=== PATIENT | female | born 1935 | race Caucasian/White ===

== ENCOUNTER 2016-07-05 11:06 | Emergency (ER) | payer MEDICARE ==
--- NOTE | 2016-07-05 11:38 | ER Document Report ---
ED Medical Screen (RME) - General Chief Complaint: Chest Pain Stated Complaint: CHEST PAIN Mode of Arrival: Wheelchair Information source: Patient TRAVEL OUTSIDE OF THE [place] IN LAST 30 DAYS: No - HPI Onset: Other - SEVERAL WEEKS, INCREASED YESTERDAY Onset/Duration: Gradual Quality of pain: Sharp, Other - SORENESS Associated Symptoms: None. denies: Chills, Cough (productive), Cough ( nonproductive), Fever, Nausea, Shortness of breath Exacerbated by: Movement Relieved by: Remaining still - Related Data Smoking: Non-smoker Frequency of alcohol use: None Drug Abuse: None Allergies/Adverse Reactions: adhesive tape [Adhesive Tape] Allergy (Verified 07/05/16 11:28) clindamycin HCl [From Cleocin] Allergy (Verified 07/05/16 11:28) clindamycin palmitate HCl [From Cleocin] Allergy (Verified 07/05/16 11:28) clindamycin phosphate [From Cleocin] Allergy (Verified 07/05/16 11:28) codeine [Codeine] Allergy (Verified 07/05/16 11:28) cortisone [Cortisone] Allergy (Verified 07/05/16 11:28) erythromycin base [Erythromycin Base] Allergy (Verified 07/05/16 11:28) hydromorphone HCl [From Dilaudid] Allergy (Verified 07/05/16 11:28) morphine [Morphine] Allergy (Verified 07/05/16 11:28) Penicillins Allergy (Verified 07/05/16 11:28) Home Medications: Current Home Medications Omeprazole [Omeprazole] 1 tab PO DAILY 07/05/16 [History] Past Medical History - General Information source: Patient - Social History Cigarette use (# per day): No Frequency of alcohol use: None Drug Abuse: None Lives with: Family Family history: Reviewed & Not Pertinent - Past Medical History Cardiac Medical History: Reports: Hx Coronary Artery Disease, Hx Heart Attack, Hx Hypercholesterolemia, Hx Hypertension Pulmonary Medical History: Reports: Hx COPD, Hx Pneumonia Neurological Medical History: Reports: Hx Cerebrovascular Accident Endocrine Medical History: Reports: Hx Diabetes Mellitus Type 2 Renal/ Medical History: Denies: Hx Peritoneal Dialysis Malignancy Medical History: Reports: Hx Breast Cancer, Hx Cervical Cancer Musculoskeltal Medical History: Reports Hx Arthritis, Reports Hx Musculoskeletal Deformity, Reports Hx Musculoskeletal Trauma - broken cervical spine, both ankles, left wrist Traumatic Medical History: Reports: Hx Fractures, Hx Spine Fracture Past Surgical History: Reports: Hx Breast Surgery - mastectomy bilateral, Hx Cardiac Surgery - heart valve replacement, bypass, Hx Coronary Artery Bypass Graft, Hx Hysterectomy, Hx Neurologic Surgery, Hx Orthopedic Surgery - left knee cartlidge removed to put in left ankle, left ankle orif, neck samantha, Hx Valve Replacement - Porcine Aortic valve - Immunizations Immunizations up to date: Yes Hx Diphtheria, Pertussis, Tetanus Vaccination: Yes Review of Systems - Review of Systems Constitutional: No symptoms reported. denies: Chills, Fever Cardiovascular: See HPI Respiratory: See HPI Physical Exam - Vital signs Vitals: Temp Pulse Resp BP Pulse Ox 97.8 F 80 20 158/69 H 98 07/05/16 11:23 07/05/16 11:23 07/05/16 11:23 07/05/16 11:23 07/05/16 11:23 Interpretation: Normal - General General appearance: Appears well, Alert In distress: None - Respiratory Chest status: Tender - L. UPPER PECTORAL Breath sounds: Normal - Cardiovascular Rhythm: Regular Heart sounds: Normal auscultation Murmur: No Course - Vital Signs Vital signs: Temp Pulse Resp BP Pulse Ox 97.8 F 80 20 158/69 H 98 07/05/16 11:23 07/05/16 11:23 07/05/16 11:23 07/05/16 11:23 07/05/16 11:23
[2016-07-05 12:01] LABS: ABSOLUTE BASOPHILS # (AUTO) 0.1 10^3/uL (0.0-0.2); ABSOLUTE EOSINOPHILS # (AUTO) 0.2 10^3/uL (0.0-0.6); ABSOLUTE LYMPHOCYTES (AUTO) 1.5 10^3/uL (0.5-4.7); ABSOLUTE MONOCYTES (AUTO) 0.4 10^3/uL (0.1-1.4); ABSOLUTE NEUT (AUTO) 3.7 10^3/uL (1.7-8.2); BASOPHILS % (AUTO) 1.1 % (0-2); HEMATOCRIT 43.2 % (36.0-47.0); HEMOGLOBIN 14.7 g/dL (12.0-15.5); HGB HCT DIFFERENCE 0.9; LYMPHOCYTES % (AUTO) 25.5 % (13-45); MEAN CORPUSCULAR HEMOGLOBIN 31.4 pg (27.0-33.4); MEAN CORPUSCULAR HGB CONC 34.1 g/dL (32.0-36.0); MEAN CORPUSCULAR VOLUME 92 fl (80-97); MONOCYTES % (AUTO) 6.8 % (3-13); SEGMENTED NEUTROPHILS % (AUTO) 63.6 % (42-78); WHITE BLOOD COUNT 5.8 10^3/uL (4.0-10.5)
[2016-07-05 12:20] LABS: ALANINE AMINOTRANSFERASE 28 U/L (9-52); ALBUMIN 4.6 g/dL (3.5-5.0); ALKALINE PHOSPHATASE 80 U/L (38-126); ANION GAP 12 (5-19); ASPARTATE AMINO TRANSFERASE 27 U/L (14-36); BILIRUBIN,DIRECT 0.3 mg/dL (0.0-0.4); BILIRUBIN,TOTAL 0.9 mg/dL (0.2-1.3); BLOOD UREA NITROGEN 17 mg/dL (7-20); CALCIUM 10.1 mg/dL (8.4-10.2); CARBON DIOXIDE 29 mmol/L (22-30); CHLORIDE 105 mmol/L (98-107); CREATINE KINASE 55 U/L (30-135); CREATININE RESULT 0.68 mg/dL (0.52-1.25); GLUCOSE 94 mg/dL (75-110); SODIUM 145.6 mmol/L (137-145)
[2016-07-05 12:36] LABS: TROPONIN I < 0.012 ng/mL
--- NOTE | 2016-07-05 13:41 | ER Document Report ---
ED General - General Chief Complaint: Chest Pain Stated Complaint: CHEST PAIN Mode of Arrival: Wheelchair TRAVEL OUTSIDE OF THE [place] IN LAST 30 DAYS: No - HPI Patient complains to provider of: chest wall pain Notes: Patient is coming in for evaluation of chest wall pain. Patient states ongoing for approximately a week started after she was taking care of her great grandson states pain with movement denies any shortness breath nausea vomiting fevers chills. Patient does have a history of bypass surgery in the past. Patient states "I know his chest wall pain that would just like to make sure that is not pneumonia a cracked rib or my heart - Related Data Allergies/Adverse Reactions: adhesive tape [Adhesive Tape] Allergy (Verified 07/05/16 11:28) aspirin Allergy (Verified 07/05/16 12:29) betamethasone [From Celestone] Allergy (Verified 07/05/16 12:29) clindamycin HCl [From Cleocin] Allergy (Verified 07/05/16 11:28) clindamycin palmitate HCl [From Cleocin] Allergy (Verified 07/05/16 11:28) clindamycin phosphate [From Cleocin] Allergy (Verified 07/05/16 11:28) codeine [Codeine] Allergy (Verified 07/05/16 11:28) cortisone [Cortisone] Allergy (Verified 07/05/16 11:28) erythromycin base [Erythromycin Base] Allergy (Verified 07/05/16 11:28) hydromorphone HCl [From Dilaudid] Allergy (Verified 07/05/16 11:28) morphine [Morphine] Allergy (Verified 07/05/16 11:28) Penicillins Allergy (Verified 07/05/16 11:28) Sulfa (Sulfonamide Antibiotics) Allergy (Verified 07/05/16 12:29) Home Medications: Current Home Medications Omeprazole [Omeprazole] 1 tab PO DAILY 07/05/16 [History] Past Medical History - General Information source: Patient - Social History Smoking Status: Never Smoker Cigarette use (# per day): No Chew tobacco use (# tins/day): No Frequency of alcohol use: Social Drug Abuse: None Lives with: Family Family History: Reviewed & Not Pertinent, DM, Other - was adopted at and does not know more of history Patient has suicidal ideation: No Patient has homicidal ideation: No - Past Medical History Cardiac Medical History: Reports: Hx Coronary Artery Disease, Hx Heart Attack, Hx Hypercholesterolemia, Hx Hypertension Pulmonary Medical History: Reports: Hx Asthma, Hx COPD, Hx Pneumonia Neurological Medical History: Reports: Hx Cerebrovascular Accident Endocrine Medical History: Reports: Hx Diabetes Mellitus Type 2 Renal/ Medical History: Denies: Hx Peritoneal Dialysis Malignancy Medical History: Reports: Hx Breast Cancer, Hx Cervical Cancer Musculoskeltal Medical History: Reports Hx Arthritis, Reports Hx Musculoskeletal Deformity, Reports Hx Musculoskeletal Trauma - broken cervical spine, both ankles, left wrist Traumatic Medical History: Reports: Hx Fractures, Hx Spine Fracture Past Surgical History: Reports: Hx Breast Surgery - mastectomy bilateral, Hx Cardiac Surgery - heart valve replacement, bypass, Hx Coronary Artery Bypass Graft, Hx Hysterectomy, Hx Neurologic Surgery, Hx Orthopedic Surgery - left knee cartlidge removed to put in left ankle, left ankle orif, neck samantha, Hx Valve Replacement - Porcine Aortic valve - Immunizations Immunizations up to date: Yes Hx Diphtheria, Pertussis, Tetanus Vaccination: Yes Review of Systems - Review of Systems Constitutional: No symptoms reported EENT: No symptoms reported Cardiovascular: Chest pain - Chest wall Respiratory: No symptoms reported Gastrointestinal: No symptoms reported Genitourinary: No symptoms reported Female Genitourinary: No symptoms reported Musculoskeletal: No symptoms reported Skin: No symptoms reported Hematologic/Lymphatic: No symptoms reported Neurological/Psychological: No symptoms reported Physical Exam - Vital signs Vitals: Temp Pulse Resp BP Pulse Ox 97.8 F 80 20 158/69 H 98 07/05/16 11:23 07/05/16 11:23 07/05/16 11:23 07/05/16 11:23 07/05/16 11:23 Interpretation: Normal - General General appearance: Appears well, Alert - HEENT Head: Normocephalic, Atraumatic Eyes: Normal Pupils: PERRL - Respiratory Respiratory status: No respiratory distress Chest status: Tender - Tenderness to palpation of the left lateral chest wall reproducing patient's pain Breath sounds: Normal Chest palpation: Normal - Cardiovascular Rhythm: Regular Heart sounds: Normal auscultation Murmur: No - Abdominal Inspection: Normal Distension: No distension Bowel sounds: Normal Tenderness: Nontender Organomegaly: No organomegaly - Back Back: Normal, Nontender - Extremities General upper extremity: Normal inspection, Nontender, Normal color, Normal ROM , Normal temperature General lower extremity: Normal inspection, Nontender, Normal color, Normal ROM , Normal temperature, Normal weight bearing. No: Anne's sign - Neurological Neuro grossly intact: Yes Cognition: Normal Orientation: AAOx4 Emiliana Coma Scale Eye Opening: Spontaneous Emil[place] Coma Scale Verbal: Oriented [place] Coma Scale Motor: Obeys Commands [place] Coma Scale Total: 15 Speech: Normal Motor strength normal: LUE, RUE, LLE, RLE Sensory: Normal - Psychological Associated symptoms: Normal affect, Normal mood - Skin Skin Temperature: Warm Skin Moisture: Dry Skin Color: Normal Course - Re-evaluation Re-evalutation: 07/05/16 15:12 The patient has atypical chest pain as the patient's chest pain is not suggestive of pulmonary embolus, cardiac ischemia, aortic dissection, or other serious etiology. Given the extremely low risk of these diagnoses further testing and evaluation for these possibilities does not appear to be indicated at this time. The patient has been instructed to return if the symptoms worsen or change in any way. Examination is consistent with chest wall pain EKG troponin are negative for acute changes - Vital Signs Vital signs: Temp Pulse Resp BP Pulse Ox 98.8 F 80 19 140/70 H 96 07/05/16 13:43 07/05/16 11:23 07/05/16 13:43 07/05/16 13:43 07/05/16 13:43 - Laboratory Result Diagrams: 07/05/16 11:45 07/05/16 11:45 Laboratory results interpreted by me: 07/05/16 11:45 Sodium 145.6 H Discharge - Discharge Clinical Impression: Chest wall pain Condition: Good Disposition: HOME, SELF-CARE Instructions: Chest Wall Pain ([facility]) Additional Instructions: Follow-up with your primary care physician. Take your home medications as prescribed. You may place ice packs and warm packs to help out with pain into the ER symptoms worsen Referrals: DEWAYNE BAUTISTA DO [Primary Care Provider] - Follow up in 3-5 days
[2016-07-05 13:56] VITALS: BP 140/70
--- NOTE | 2016-07-06 08:08 | EKG REPORT ---
SEVERITY:- ABNORMAL ECG - SINUS RHYTHM RIGHT ATRIAL ABNORMALITY NONSPECIFIC INTRAVENTRICULAR CONDUCTION DELAY LEFT VENTRICULAR HYPERTROPHY CONSIDER HYPERKALEMIA : Confirmed by: Salvador Perez MD 06-Jul-2016 08:07:50
== END 2016-07-05 13:56 | disposition home or self-care (01) ==
LOC: ER 11:06
DX: R07.89 Other chest pain (principal); Z79.899 Other long term (current) drug therapy
CPT/HCPCS: 36415; 71010; 80053; 82550; 82553; 84484; 85025; 93005; 93010; 99285

== ENCOUNTER → 2017-03-26 | Outpatient (CLI) | payer MEDICARE ==
--- NOTE | 2017-03-26 10:23 | RADIOLOGY REPORT (SQ) ---
EXAM DESCRIPTION: C SP 4 OR 5 VIEWS COMPLETED DATE/TIME: 03/26/2017 10:05 am REASON FOR STUDY: OTHER SPECIFIED DEFORMING DORSOPATHIES, CERVICAL REGION M43.8X2 OTHER SPECIFIED D EFORMING DORSOPATHIES, CERVICAL REG R07.9 CHEST PAIN, UNSPECIFIED COMPARISON: None. NUMBER OF VIEWS: Five views. TECHNIQUE: AP, lateral, obliques and odontoid radiographic images acquired of the cervical spine. LIMITATIONS: None. FINDINGS: MINERALIZATION: Osteoporotic ALIGNMENT: There is accentuated kyphosis from C5 through T2. VERTEBRAE: 25 to 50% compression of C7 with upper endplate sclerosis, likely chronic. DISCS: Ankylosis across the C6-7 disc. Disc space narrowing and sclerosis at C4-5, C5-6, and C7-T1 FORAMINA: Mild bilateral C5-6 and C6-7 foraminal narrowing from facet arthropathy LATERAL AND POSTERIOR ELEMENTS: Post fusion of the facet joints bilaterally at C3-4 with hardware HARDWARE: Bilateral C3-4 facet fusion hardware SOFT TISSUES: No masses or calcifications. Lung apices clear. OTHER: No other significant finding. IMPRESSION: Diffuse degenerative changes as above TECHNICAL DOCUMENTATION: JOB ID: [id number] [email or web address]- All Rights Reserved
--- NOTE | 2017-03-26 10:28 | RADIOLOGY REPORT (SQ) ---
EXAM DESCRIPTION: CHEST PA/LATERAL COMPLETED DATE/TIME: 03/26/2017 10:05 am REASON FOR STUDY: CHEST PAIN COMPARISON: AP chest 07/05/2016, 07/01/2015 CT chest 08/23/2015 EXAM PARAMETERS: NUMBER OF VIEWS: two views TECHNIQUE: Digital Frontal and Lateral radiographic views of the chest acquired. RADIATION DOSE: NA LIMITATIONS: none FINDINGS: LUNGS AND PLEURA: Chronic appearing calcified plaque left upper hemithorax. No acute infiltrates. No pleural effusion or pneumothorax. MEDIASTINUM AND HILAR STRUCTURES: No masses or contour abnormalities. HEART AND VASCULAR STRUCTURES: Old sternotomy and CABG. No cardiomegaly. BONES: Osteoporotic with old healed left lower lateral rib fractures. HARDWARE: Old sternotomy OTHER: No other significant finding. IMPRESSION: No acute findings TECHNICAL DOCUMENTATION: JOB ID: [id number] [employer]- All Rights Reserved
== END ==
LOC: OD 09:27
PROVIDERS: ATTEND Family Medicine
DX: M43.8X2 Other specified deforming dorsopathies, cervical region (principal); M47.892 Other spondylosis, cervical region; R07.9 Chest pain, unspecified
CPT/HCPCS: 71046; 72050

== ENCOUNTER → 2017-07-25 | Outpatient (CLI) | payer MEDICARE ==
--- NOTE | 2017-07-25 16:05 | RADIOLOGY REPORT (SQ) ---
EXAM DESCRIPTION: MRI HEAD COMBO COMPLETED DATE/TIME: 07/25/2017 1:00 pm REASON FOR STUDY: MEMORY LOSS/OTHER AMNEAIA R41.3 OTHER AMNESIA R01.1 CARDIAC MURMUR, UNSPECIFIED COMPARISON: CT brain 08/01/2015 TECHNIQUE: Multiplanar imaging includes noncontrasted T1, T2, FLAIR, diffusion with ADC map and post gadolinium contrast T1 sequences. Images stored on PACS. CONTRAST TYPE AND DOSE: 10 mL Multihance. RENAL FUNCTION: GFR > 60. LIMITATIONS: Patient is extremely kyphotic, scanned in the right decubitus position. Mild motion ar tifact on the post contrasted images FINDINGS: ANATOMY: No developmental anomalies. Normal vascular flow voids. Pituitary fossa normal. CSF SPACES: Normal in size and contour. No hemorrhage. CEREBRUM: Small chronic appearing nonhemorrhagic right occipital cortical infarct axial FLAIR image 1 3 through 15. Normal white matter signal on FLAIR imaging. No evidence of hemorrhage, mass, or extra axial fluid collection. No abnormal enhancement post contrast. POSTERIOR FOSSA: Tiny chronic lacunar infarct right cerebellar hemisphere axial T2 image 9. No hemor rhage. No edema, masses, or mass effect. Internal auditory canals, cerebellopontine angles, mastoids normal. No enhancing lesions. No abnormal enhancement post contrast. DIFFUSION IMAGING: Negative for acute or subacute infarction. ORBITS: Post bilateral cataract surgery. PARANASAL SINUSES: Opacified right maxillary sinus OTHER: No other significant finding. IMPRESSION: No acute findings. Tiny chronic appearing nonhemorrhagic lacunar infarct right cerebellar hemisphere. EVIDENCE OF ACUTE STROKE: NO. TECHNICAL DOCUMENTATION: JOB ID: [id number] [employer] All Rights Reserved Reading location - IP/workstation name: [email or web address]
--- NOTE | 2017-07-25 19:46 | XCELERA REPORT ---
[address] [address] Transthoracic Echocardiogram Report Name: SELINA RIZZO Age: 82 yrs Gender: Female : 1935 Patient Status: Outpatient Patient Location: RAD Study Date: 07/25/2017 01:33 PM Height: 62 in Weight: 102 lb BSA: 1.4 m2 Reason For Study: MURMUR Ordering Physician: DEWAYNE BAUTISTA Performed By: Marisol Hdez Interpretation Summary Poor study, LA poorly visulalised. No biplane LVEF calculated. TAPSE visually looked more normal than measured. Calcifed aortic root not dilated. Heavily calcified AV with 3 cusps. there is mild calcific with PPG 18, MPG 9, with no AR seen. Mod MAC, with thickened MV leaflets, no MS, no MVP and probably mild MR with unmeasured poorly visualized LA. LVH is mild, IVS is dyskinetic due to conduction defect, LVEF is normal 60% visually with stage I LVDD, and no LVenlargement, with segmental wall motion abn. R heart size probably normal and no elev. RVSP to suggest pulm hypertension, RV function appears normal. MMode/2D Measurements & Calculations RVDd: 2.4 cm LVIDd: 3.2 cm FS: 22.1 % Ao root diam: 2.6 cm IVSd: 1.0 cm LVIDs: 2.5 cm EDV(Teich): 39.4 ml LVPWd: 0.97 cmESV(Teich): 21.3 ml Ao root area: 5.2 cm2 EF(Teich): 46.0 % LA dimension: 2.9 cm LVOT diam: 1.6 cm LVOT area: 2.1 cm2 Doppler Measurements & Calculations MV E max christopher: MV P1/2t max christopher: Ao V2 max: LV V1 max P.5 cm/sec 80.5 cm/sec 202.1 cm/sec 3.7 mmHg MV A max christopher: MV P1/2t: 66.8 msec Ao max PG: LV V1 mean P.5 cm/sec MVA(P1/2t): 3.3 cm2 16.4 mmHg 1.9 mmHg MV E/A: 0.68 MV dec slope: Ao V2 mean: LV V1 max: 352.6 cm/sec2 136.4 cm/sec 95.6 cm/sec Ao mean PG: LV V1 mean: 9.0 mmHg 63.1 cm/sec Ao V2 VTI: 39.5 cmLV V1 VTI: MARIO(I,D): 1.0 cm2 18.7 cm MARIO(V,D): 1.0 cm2 SV(LVOT): 39.8 ml PA V2 max: TR max christopher: 83.9 cm/sec 205.0 cm/sec PA max P.8 mmHg TR max P.8 mmHg Left Ventricle The left ventricle is grossly normal size. LV EF is 60%. Doppler measurements suggest impaired left ventricular relaxation, which is associated with grade I/IV or mild diastolic dysfunction. There are regional wall motion abnormalities as specified. There is septal wall dyskinesis. There is inferoseptal wall moderate hypokinesis. There is no thrombus. Right Ventricle The right ventricle is normal in size, thickness and function. Atria The right atrium is normal. The left atrium is not well visualized secondary to technical limitations. Mitral Valve The mitral valve leaflets are sclerotic and show some degree of functional abnormality. There is moderate mitral annular calcification. There is no evidence of mitral valve prolapse. There is no mitral valve stenosis. There is a trace amount of mitral regurgitation. Aortic Valve The aortic valve is trileaflet. The aortic valve is heavily calcified. Cannot exclude aortic valvular vegetation. Tricuspid Valve The tricuspid valve is not well visualized, but is grossly normal. There is a trace or physiologic amount of tricuspid regurgitation. There is a mild amount of tricuspid regurgitation. Great Vessels There is aortic root sclerosis/calcification. Effusions There is no pericardial effusion. I WMSI = 1.44 % Normal = 69 Segments Size X - Cannot 1 - Normal 2 - 3 - Akinetic4 - 1-2 small Interpret Hypokinetic Dyskinetic 3-5 moderate 5 - 6-14 large Aneurysmal 15-16 diffuse : DEWAYNE BAUTISTA > Salvador Perez
== END ==
LOC: RAD 11:33
PROVIDERS: ATTEND Family Medicine
DX: R41.3 Other amnesia (principal); R01.1 Cardiac murmur, unspecified
CPT/HCPCS: 82565; 93306; 70553; A9577

== ENCOUNTER → 2017-08-06 | Outpatient (CLI) | payer MEDICARE ==
--- NOTE | 2017-08-06 11:21 | RADIOLOGY REPORT (SQ) ---
EXAM DESCRIPTION: HAND LEFT 3 VIEWS COMPLETED DATE/TIME: 08/06/2017 11:01 am REASON FOR STUDY: INJURY OF LEFT HAND, INITIAL ENCOUNTER COMPARISON: None. EXAM PARAMETERS: NUMBER OF VIEWS: Three views. TECHNIQUE: AP, lateral and oblique radiographic images acquired of the left hand. LIMITATIONS: None. FINDINGS: MINERALIZATION: Normal. BONES: No acute fracture or dislocation. No worrisome bone lesions. JOINTS: Degenerative changes on the radial side of the wrist and at the base of the thumb. Joint spa ce narrowing with sclerosis. SOFT TISSUES: No soft tissue swelling. No foreign body. OTHER: No other significant finding. IMPRESSION: DEGENERATIVE CHANGES. NO RADIOGRAPHIC EVIDENCE OF ACUTE INJURY. TECHNICAL DOCUMENTATION: JOB ID: [id number] [email or web address] All Rights Reserved Reading location - IP/workstation name: [email or web address]
== END ==
LOC: OD 10:40
PROVIDERS: ATTEND Family Medicine
DX: S69.92XA Unspecified injury of left wrist, hand and finger(s), initial encounter (principal); X58.XXXA Exposure to other specified factors, initial encounter

== ENCOUNTER 2018-04-14 08:53 | Day surgery (SDC) | payer MEDICARE ==
[~2018-04-14 08:53] MED LIST: PROPOFOL INJ 200 MG/20 ML VIAL IV ONE
[2018-04-14 11:51] VITALS: BP 159/78
--- NOTE | 2018-04-14 13:55 | Operative Report ---
Operative Report DATE OF SURGERY: 04/14/18 Operative Report: The risks benefits and alternatives of the procedure explained to the patient in detail and informed consent is obtained.A GIF Olympus video scope was inserted into the patient's mouth and hypopharynx, the esophagus is identified intubated and insufflated, the scope was then advanced through the esophagus stomach and duodenum, retroflexion maneuver is done, the esophagus stomach and first and second portions of the duodenum examined. PREOPERATIVE DIAGNOSIS: Dysphagia POSTOPERATIVE DIAGNOSIS: Schatzki's ring which is broken. Gastritis status post biopsy rule out Helicobacter pylori. No Zenker's diverticulum noted. No esophageal obstruction noted OPERATION: EGD with biopsy SURGEON: HERNESTO NAVARRO ANESTHESIA: LMAC TISSUE REMOVED OR ALTERED: As noted above. COMPLICATIONS: None. ESTIMATED BLOOD LOSS: None. INTRAOPERATIVE FINDINGS: As noted above. PROCEDURE: Patient tolerated the procedure well. No immediate postprocedure complications are noted. Patient discharged in good condition. Discharge date 04/14/2018. Discharge diet: Regular. Discharge activity: Regular. 2-3-week follow-up to discuss findings. Patient is instructed call the office or proceed to the emergency room should there be any further problems or concerns. We will wait on the pathology.
== END 2018-04-14 11:45 | disposition home or self-care (01) ==
LOC: END 08:53
PROVIDERS: ATTEND Internal Medicine Gastroenterology
DX: K22.2 Esophageal obstruction (principal); K29.50 Unspecified chronic gastritis without bleeding; J44.9 Chronic obstructive pulmonary disease, unspecified; I11.9 Hypertensive heart disease without heart failure; I25.10 Atherosclerotic heart disease of native coronary artery without angina pectoris; R06.02 Shortness of breath; I38 Endocarditis, valve unspecified; M17.0 Bilateral primary osteoarthritis of knee; R01.1 Cardiac murmur, unspecified; Z85.41 Personal history of malignant neoplasm of cervix uteri; Z88.0 Allergy status to penicillin; Z86.711 Personal history of pulmonary embolism; Z86.73 Personal history of transient ischemic attack (TIA), and cerebral infarction without residual deficits; Z88.2 Allergy status to sulfonamides; Z85.3 Personal history of malignant neoplasm of breast; Z88.6 Allergy status to analgesic agent
CPT/HCPCS: 43239; 88342 ×2; 88305 ×2; J2704; 731

== ENCOUNTER → 2018-04-30 | Outpatient (CLI) | payer MEDICARE ==
--- NOTE | 2018-04-30 12:49 | RADIOLOGY REPORT (SQ) ---
EXAM DESCRIPTION: T SPINE AP/LAT COMPLETED DATE/TIME: 04/30/2018 12:21 pm REASON FOR STUDY: PAIN IN THORACIC SPINE M54.6 PAIN IN THORACIC SPINE COMPARISON: 08/23/2015 NUMBER OF VIEWS: Two views. TECHNIQUE: AP and lateral radiographic images acquired of the thoracic spine. LIMITATIONS: Severe osteopenia limits evaluation. FINDINGS: MINERALIZATION: Osteopenia. ALIGNMENT: Exaggerated thoracic kyphosis. Serpiginous thoracolumbar curvature. VERTEBRAE: Severe decreased mineralization and thoracic scoliosis limits evaluation for compression d eformities of the upper thoracic spine. No evidence of lower thoracic compression deformity. DISCS: Multilevel degenerative changes with disc height loss. HARDWARE: Median sternotomy wires. MEDIASTINUM AND SOFT TISSUES: Normal heart size and aortic contour. No soft tissue abnormality. VISUALIZED LUNG VILA: Clear. OTHER: No other significant finding. IMPRESSION: Scoliosis with exaggerated thoracic kyphosis. Markedly limited exam secondary to patien t bone density and spinal curvature. If high clinical concern for acute compression deformity CT or MRI should be considered. TECHNICAL DOCUMENTATION: JOB ID: [id number] [employer]- All Rights Reserved Reading location - IP/workstation name: [email or web address]
== END ==
LOC: OD 11:49
PROVIDERS: ATTEND Family Medicine
DX: M54.6 Pain in thoracic spine (principal)
CPT/HCPCS: 72070

== ENCOUNTER 2018-05-21 08:49 | Emergency (ER) | payer MEDICARE ==
[2018-05-21] MEDS ORDERED: IPRATROPIUM/ALBUTEROL 0.5-2.5 MG/3 ML AMPUL NEB ONE (09:20)
[2018-05-21] MEDS ORDERED: NORMAL SALINE 1000 ML 500 ML IV ONE (09:20)
--- NOTE | 2018-05-21 09:25 | ER Document Report ---
ED General - General Chief Complaint: Breathing Difficulty Stated Complaint: DIFFICULTY BREATHING Time Seen by Provider: 05/21/18 09:12 Primary Care Provider: DEWAYNE BAUTISTA DO [Primary Care Provider] - Follow up as needed TRAVEL OUTSIDE OF THE [place] IN LAST 30 DAYS: No - HPI Notes: Patient is a 83-year-old female that presents to the emergency department for chief complaint of generalized weakness and shortness of breath. Patient reports progressive weakness over the last month. She states today she was too weak to get up off of the couch and was incontinent of urine because of her inability to get up and go to the bathroom. She reports progressive shortness of breath as well. She denies history of COPD but states her doctor as previously recommended inhalers which she does not like and will not use. She states she has oxygen at home that she also does not like and does not want to use. Patient reports difficulty swallowing which is chronic for her but believes she is eating and drinking appropriately. She denies any nausea, vomiting, abdominal pain, chest pain, fevers or chills. She denies any focal numbness weakness or headaches Past Medical History: Dysphasia, malnutrition Past Surgical History: CABG Social History: Reviewed in chart Family History: Reviewed and noncontributory for presenting illness Allergies: Reviewed, see documented allergy list. REVIEW OF SYSTEMS: CONSTITUTIONAL : No fever No chills No diaphoresis No recent illness EENT: No vision changes congestion No sore throat CARDIOVASCULAR: No chest pain No palpitations RESPIRATORY: shortness of breath cough GASTROINTESTINAL: No abdominal pain No nausea No vomiting No diarrhea GENITOURINARY: No dysuria No hematuria No difficulty urinating MUSCULOSKELETAL: No back pain No leg pain No arm pain SKIN: No rashes No lesions LYMPHATIC: No swollen, enlarged glands. NEUROLOGICAL: No lightheadedness No headache No weakness No paresthesias PSYCHIATRIC: No anxiety No depression PHYSICAL EXAMINATION: Vital signs reviewed, nursing noted reviewed. GENERAL: Malnourished, cachectic, frail and in no acute distress. HEAD: Atraumatic, normocephalic. EYES: Eyes appear normal, extraocular movements intact, sclera anicteric, co njunctiva are normal. ENT: nares patent, oropharynx clear without exudates. Dry mucous membranes. NECK: Normal range of motion, supple without lymphadenopathy LUNGS: Breath sounds diminished with bilateral wheezing HEART: Regular rate and rhythm without murmurs ABDOMEN: Soft, nontender, normoactive bowel sounds. No rebound, guarding, or rigidity. No masses appreciated. EXTREMITIES: Nontender, good range of motion, no pitting or edema. NEUROLOGICAL: No focal neurological deficits. Moves all extremities spontaneously Motor and sensory grossly intact on exam. PSYCH: Normal mood, normal affect. SKIN: Warm, Dry, no rashes or lesions noted on exposed skin - Related Data Allergies/Adverse Reactions: adhesive tape [Adhesive Tape] Allergy (Verified 04/14/18 09:50) aspirin Allergy (Verified 04/14/18 09:50) betamethasone [From Celestone] Allergy (Verified 04/14/18 09:50) clindamycin HCl [From Cleocin] Allergy (Verified 04/14/18 09:50) clindamycin palmitate HCl [From Cleocin] Allergy (Verified 04/14/18 09:50) clindamycin phosphate [From Cleocin] Allergy (Verified 04/14/18 09:50) codeine [Codeine] Allergy (Verified 04/14/18 09:50) cortisone [Cortisone] Allergy (Verified 04/14/18 09:50) erythromycin base [Erythromycin Base] Allergy (Verified 04/14/18 09:50) hydromorphone HCl [From Dilaudid] Allergy (Verified 04/14/18 09:50) morphine [Morphine] Allergy (Verified 04/14/18 09:50) Penicillins Allergy (Verified 04/14/18 09:50) Sulfa (Sulfonamide Antibiotics) Allergy (Verified 04/14/18 09:50) Past Medical History - Social History Smoking Status: Never Smoker Family History: Reviewed & Not Pertinent, DM, Other - was adopted at and does not know more of history - Past Medical History Cardiac Medical History: Reports: Hx Hypercholesterolemia Denies: Hx Coronary Artery Disease, Hx Heart Attack, Hx Hypertension Pulmonary Medical History: Reports: Hx Pneumonia Denies: Hx Asthma, Hx Bronchitis, Hx COPD Neurological Medical History: Reports: Hx Cerebrovascular Accident. Denies: Hx Seizures Endocrine Medical History: Reports: Hx Diabetes Mellitus Type 2 Renal/ Medical History: Denies: Hx Peritoneal Dialysis Malignancy Medical History: Reports: Hx Breast Cancer, Hx Cervical Cancer Musculoskeletal Medical History: Reports Hx Arthritis, Reports Hx Musculoskeletal Deformity, Reports Hx Musculoskeletal Trauma - broken cervical spine, both ankles, left wrist Traumatic Medical History: Reports: Hx Fractures, Hx Spine Fracture Past Surgical History: Reports: Hx Breast Surgery - mastectomy bilateral, Hx Cardiac Surgery - heart valve replacement, bypass, Hx Coronary Artery Bypass Graft, Hx Hysterectomy, Hx Neurologic Surgery, Hx Orthopedic Surgery - left knee cartlidge removed to put in left ankle, left ankle orif, neck samantha, Hx Valve Replacement - Porcine Aortic valve - Immunizations Immunizations up to date: Yes Hx Diphtheria, Pertussis, Tetanus Vaccination: Yes Physical Exam - Vital signs Vitals: Resp Pulse Ox 25 H 98 05/21/18 09:16 05/21/18 09:16 Course - Re-evaluation Re-evalutation: 05/21/18 09:25 Vitals reviewed. Nursing notes reviewed. Patient is well-appearing but very malnourished and cachectic. She was given DuoNeb for her wheezing. 05/21/18 12:15 Patient's lab work is unremarkable. She has no urinary tract infection or pne umonia on x-ray. She has a normal lactic acid. She appears well-hydrated with normal kidney function and no electrolyte derangements. She is not acutely anemic. Patient was able to ambulate in the department on room air and maintained her oxygen saturation around 93%. She states that the breathing treatment she received "irritated me" and she does not wish to have any further treatments. She does have oxygen at home that she can wear as needed. She is otherwise hemodynamically stable. I did middle school counselor her on nutritional improvements and recommended that she start drinking boost or Ensure to supplement her diet. She will follow closely with her primary care doctor in the next few days. She will return for new or worsening symptoms. She is stable at discharge. Laboratory 05/21/18 05/21/18 05/21/18 09:00 09:00 09:00 WBC 6.1 RBC 4.70 Hgb 15.0 Hct 43.7 MCV 93 MCH 31.9 MCHC 34.2 RDW 14.2 H Plt Count 172 Seg Neutrophils % 82.0 H Lymphocytes % 12.5 L Monocytes % 4.9 Eosinophils % 0.1 Basophils % 0.5 Absolute Neutrophils 5.0 Absolute Lymphocytes 0.8 Absolute Monocytes 0.3 Absolute Eosinophils 0.0 Absolute Basophils 0.0 Sodium Cancelled Potassium Cancelled Chloride Cancelled Carbon Dioxide Cancelled Anion Gap Cancelled BUN Cancelled Creatinine Cancelled Est GFR ( Amer) Cancelled Est GFR (Non-Af Amer) Cancelled Glucose Cancelled Lactic Acid Calcium Cancelled Total Bilirubin Cancelled Direct Bilirubin Cancelled Neonat Total Bilirubin Cancelled Neonat Direct Bilirubin Cancelled Neonat Indirect Bili Cancelled AST Cancelled ALT Cancelled Alkaline Phosphatase Cancelled Troponin I Cancelled NT-Pro-B Natriuret Pep Cancelled Total Protein Cancelled Albumin Cancelled Urine Color Urine Appearance Urine pH Ur Specific [place] Urine Protein Urine Glucose (UA) Urine Ketones Urine Blood Urine Nitrite Urine Bilirubin Urine Urobilinogen Ur Leukocyte Esterase Urine WBC (Auto) Urine RBC (Auto) Squamous Epi Cells Auto Urine Mucus (Auto) Urine Ascorbic Acid 05/21/18 05/21/18 05/21/18 09:47 10:45 10:45 WBC RBC Hgb Hct MCV MCH MCHC RDW Plt Count Seg Neutrophils % Lymphocytes % Monocytes % Eosinophils % Basophils % Absolute Neutrophils Absolute Lymphocytes Absolute Monocytes Absolute Eosinophils Absolute Basophils Sodium 137.6 Potassium 3.8 Chloride 102 Carbon Dioxide 24 Anion Gap 12 BUN 11 Creatinine 0.55 Est GFR ( Amer) > 60 Est GFR (Non-Af Amer) > 60 Glucose 114 H Lactic Acid 0.9 Calcium 9.1 Total Bilirubin 0.6 Direct Bilirubin 0.2 Neonat Total Bilirubin Not Reportable Neonat Direct Bilirubin Not Reportable Neonat Indirect Bili Not Reportable AST 33 ALT 28 Alkaline Phosphatase 86 Troponin I < 0.012 NT-Pro-B Natriuret Pep 1890 H Total Protein 7.5 Albumin 4.2 Urine Color Urine Appearance Urine pH Ur Specific [place] Urine Protein Urine Glucose (UA) Urine Ketones Urine Blood Urine Nitrite Urine Bilirubin Urine Urobilinogen Ur Leukocyte Esterase Urine WBC (Auto) Urine RBC (Auto) Squamous Epi Cells Auto Urine Mucus (Auto) Urine Ascorbic Acid 05/21/18 10:48 WBC RBC Hgb Hct MCV MCH MCHC RDW Plt Count Seg Neutrophils % Lymphocytes % Monocytes % Eosinophils % Basophils % Absolute Neutrophils Absolute Lymphocytes Absolute Monocytes Absolute Eosinophils Absolute Basophils Sodium Potassium Chloride Carbon Dioxide Anion Gap BUN Creatinine Est GFR ( Amer) Est GFR (Non-Af Amer) Glucose Lactic Acid Calcium Total Bilirubin Direct Bilirubin Neonat Total Bilirubin Neonat Direct Bilirubin Neonat Indirect Bili AST ALT Alkaline Phosphatase Troponin I NT-Pro-B Natriuret Pep Total Protein Albumin Urine Color YELLOW Urine Appearance CLEAR Urine pH 6.0 Ur Specific [place] 1.013 Urine Protein NEGATIVE Urine Glucose (UA) NEGATIVE Urine Ketones 20 H Urine Blood MODERATE H Urine Nitrite NEGATIVE Urine Bilirubin NEGATIVE Urine Urobilinogen NEGATIVE Ur Leukocyte Esterase NEGATIVE Urine WBC (Auto) 1 Urine RBC (Auto) 18 Squamous Epi Cells Auto <1 Urine Mucus (Auto) RARE Urine Ascorbic Acid NEGATIVE Chest X-Ray 05/21/18 08:54 IMPRESSION: No acute abnormality of the lungs. Cardiomegaly. - Vital Signs Vital signs: Temp Pulse Resp BP Pulse Ox 100.3 F 96 22 H 148/63 H 97 05/21/18 11:50 05/21/18 09:19 05/21/18 11:01 05/21/18 11:01 05/21/18 11:01 - Laboratory Result Diagrams: 05/21/18 09:00 05/21/18 10:45 Laboratory results interpreted by me: 05/21/18 05/21/18 05/21/18 09:00 10:45 10:45 RDW 14.2 H Seg Neutrophils % 82.0 H Lymphocytes % 12.5 L Glucose 114 H NT-Pro-B Natriuret Pep 1890 H Urine Ketones Urine Blood 05/21/18 10:48 RDW Seg Neutrophils % Lymphocytes % Glucose NT-Pro-B Natriuret Pep Urine Ketones 20 H Urine Blood MODERATE H - EKG Interpretation by Me Additional EKG results interpreted by me: 05/21/18 09:24 Interpreted by myself [id number]: Normal sinus rhythm, rate 91, normal axis, nonspecific idioventricular conduction delay, LVH, no significant change from 07/05/16 Discharge - Discharge Clinical Impression: Shortness of breath Fatigue Qualifiers: Fatigue type: unspecified Qualified Code(s): R53.83 - Other fatigue Condition: Stable Disposition: HOME, SELF-CARE Instructions: Dyspnea, Nonspecific ([facility]), Fatigue ([facility]) Additional Instructions: Please return to the emergency department if you have any worsening, or concern of your symptoms. Please return to the emergency department if you develop chest pain, difficulty breathing, severe abdominal pain, or ongoing vomiting. Please follow-up with your primary care physician in 2-3 days and any other recommended physicians. If prescribed, take all medications as directed. If you have any questions or concerns do not hesitate to return the emergency department for evaluation. Try to increase your caloric intake, try boost or Ensure to supplement your diet. Referrals: DEWAYNE BAUTISTA DO [Primary Care Provider] - Follow up in 3-5 days
--- NOTE | 2018-05-21 09:33 | RADIOLOGY REPORT (SQ) ---
EXAM DESCRIPTION: CHEST SINGLE VIEW COMPLETED DATE/TIME: 05/21/2018 9:27 am REASON FOR STUDY: dyspnea COMPARISON: 07/01/2015 EXAM PARAMETERS: NUMBER OF VIEWS: One view. TECHNIQUE: Single frontal radiographic view of the chest acquired. RADIATION DOSE: NA LIMITATIONS: None. FINDINGS: LUNGS AND PLEURA: No opacities, masses or pneumothorax. Multiple probable calcified pulmo nary nodules. No pleural effusion. MEDIASTINUM AND HILAR STRUCTURES: No masses. Contour normal. HEART AND VASCULAR STRUCTURES: Cardiomegaly status post median sternotomy. BONES: No acute findings. HARDWARE: None in the chest. OTHER: No other significant finding. IMPRESSION: No acute abnormality of the lungs. Cardiomegaly. TECHNICAL DOCUMENTATION: JOB ID: [id number] [employer]- All Rights Reserved Reading location - IP/workstation name: [email or web address]
[2018-05-21 09:37] LABS: ABSOLUTE LYMPHOCYTES (AUTO) 0.8 10^3/uL (0.5-4.7); ABSOLUTE MONOCYTES (AUTO) 0.3 10^3/uL (0.1-1.4); BASOPHILS % (AUTO) 0.5 % (0-2); EOSINOPHILS % (AUTO) 0.1 % (0-6); HEMATOCRIT 43.7 % (36.0-47.0); LYMPHOCYTES % (AUTO) 12.5 % (13-45); MEAN CORPUSCULAR HEMOGLOBIN 31.9 pg (27.0-33.4); MEAN CORPUSCULAR HGB CONC 34.2 g/dL (32.0-36.0); MEAN CORPUSCULAR VOLUME 93 fl (80-97); MONOCYTES % (AUTO) 4.9 % (3-13); PLATELET COUNT 172 10^3/uL (150-450); RED CELL DISTRIBUTION WIDTH 14.2 % (11.5-14.0); TOTAL CELLS COUNTED % (AUTO) 100 %; WHITE BLOOD COUNT 6.1 10^3/uL (4.0-10.5)
[2018-05-21 11:13] LABS: ALANINE AMINOTRANSFERASE 28 U/L (9-52); ALBUMIN 4.2 g/dL (3.5-5.0); ALKALINE PHOSPHATASE 86 U/L (38-126); ANION GAP 12 (5-19); ASPARTATE AMINO TRANSFERASE 33 U/L (14-36); BILIRUBIN,DIRECT 0.2 mg/dL (0.0-0.4); BILIRUBIN,TOTAL 0.6 mg/dL (0.2-1.3); BLOOD UREA NITROGEN 11 mg/dL (7-20); CALCIUM 9.1 mg/dL (8.4-10.2); CARBON DIOXIDE 24 mmol/L (22-30); CHLORIDE 102 mmol/L (98-107); GLUCOSE 114 mg/dL (75-110); POTASSIUM 3.8 mmol/L (3.6-5.0); SODIUM 137.6 mmol/L (137-145); TOTAL PROTEIN 7.5 g/dL (6.3-8.2)
[2018-05-21 11:24] LABS: APPEARANCE,URINE CLEAR; BILIRUBIN,URINE NEGATIVE (NEGATIVE); COLOR,URINE YELLOW; GLUCOSE, URINE NEGATIVE (NEGATIVE); KETONES,URINE 20 mg/dL (NEGATIVE); LEUKOCYTE ESTERASE,URINE NEGATIVE (NEGATIVE); NITRITE,URINE NEGATIVE (NEGATIVE); PROTEIN,URINE NEGATIVE (NEGATIVE); URINE SPECIFIC GRAVITY 1.013; UROBILINOGEN,URINE NEGATIVE mg/dL (<2.0)
[2018-05-21 12:11] LABS: NT PRO BNP 1890 pg/mL (<450)
[2018-05-21 12:13] LABS: TROPONIN I < 0.012 ng/mL
[2018-05-21 12:37] VITALS: BP 142/68
--- NOTE | 2018-05-21 23:20 | EKG REPORT ---
SEVERITY:- ABNORMAL ECG - SINUS RHYTHM LEFT ATRIAL ABNORMALITY NONSPECIFIC INTRAVENTRICULAR CONDUCTION DELAY LEFT VENTRICULAR HYPERTROPHY : Confirmed by: Zackery Quintero 21-May-2018 23:20:00
== END 2018-05-21 12:37 | disposition home or self-care (01) ==
LOC: ER 08:49
DX: J45.909 Unspecified asthma, uncomplicated (principal); E46 Unspecified protein-calorie malnutrition; R53.1 Weakness; R32 Unspecified urinary incontinence; R06.02 Shortness of breath; R13.10 Dysphagia, unspecified; E11.9 Type 2 diabetes mellitus without complications; R05 Cough; I51.7 Cardiomegaly; Z95.3 Presence of xenogenic heart valve; Z95.1 Presence of aortocoronary bypass graft; Z87.01 Personal history of pneumonia (recurrent); Z85.3 Personal history of malignant neoplasm of breast; Z85.41 Personal history of malignant neoplasm of cervix uteri; Z91.048 Other nonmedicinal substance allergy status; Z88.6 Allergy status to analgesic agent; Z88.1 Allergy status to other antibiotic agents; Z88.8 Allergy status to other drugs, medicaments and biological substances; Z88.5 Allergy status to narcotic agent; Z88.2 Allergy status to sulfonamides; Z88.0 Allergy status to penicillin
CPT/HCPCS: 93005; 94640; 99285; 96360; 51701; 36415; 87040; 85025; 80053; 81001; 84484; 83605; 83880; 71045; 93010; J7030; A9270; J7620

== ENCOUNTER → 2018-06-24 | Outpatient (CLI) | payer MEDICARE ==
--- NOTE | 2018-06-24 10:31 | WOMENS IMAGING REPORT ---
EXAM DESCRIPTION: BONE DENSITY HIP/SPINE COMPLETED DATE/TIME: 06/24/2018 10:24 am REASON FOR STUDY: M81.0 AGE-RELATED OSTEOPOROSIS WITHOUT CURRENT PATHOLOGICAL FRACTURE M81.0 AGE-RE LATED OSTEOPOROSIS W/O CURRENT PATHOLOGICAL FRAC COMPARISON: 06/21/2015. TECHNIQUE: Dual-Energy X-ray Absorptiometry (DEXA) of the AP Spine and Hip. LIMITATIONS: None. FINDINGS: LUMBAR SPINE: The bone mineral density (BMD) measured from L1-L4 in the AP projection correlates with a T-score of -1.7, which is osteopenia as defined by the World Health Organization. HIP: The bone mineral density (BMD) measured in the left hip correlates with a T-score of -3.8, which is o steoporosis as defined by the World Health Organization. IMPRESSION: 1. LUMBAR SPINE: OSTEOPENIA. 2. HIP: OSTEOPOROSIS. COMMENT: The World Health Organization defines low BMD as follows: T-score: Normal: Greater than -1.0 Osteopenia: Between -1.0 and -2.5 Osteoporosis: Less than -2.5 without fractures Established osteoporosis: Less than -2.5 with fractures In general, you may wish to consider: Diagnosis Treatment Follow-up DEXA Normal BMD Prevention 2-3 years Osteopenia Prevention/Therapy 1-2 years Osteoporosis Therapy Yearly TECHNICAL DOCUMENTATION: JOB ID: [id number]- All Rights Reserved Reading location - IP/workstation name: [email or web address]
== END ==
LOC: WI 09:54
PROVIDERS: ATTEND Family Medicine
DX: M81.0 Age-related osteoporosis without current pathological fracture (principal)
CPT/HCPCS: 77080

== ENCOUNTER → 2018-07-11 | Outpatient (CLI) | payer MEDICARE ==
--- NOTE | 2018-07-11 11:05 | WOMENS IMAGING REPORT ---
EXAM DESCRIPTION: BONE DENSITY HIP/SPINE COMPLETED DATE/TIME: 07/11/2018 8:40 am REASON FOR STUDY: M81.0 AGE RELATED OSTEOPOROSIS WITHOUT CURRENT PATHOLOGICAL FRACTURE M81.0 AGE-RE LATED OSTEOPOROSIS W/O CURRENT PATHOLOGICAL FRAC COMPARISON: 06/24/2018 TECHNIQUE: Dual-Energy X-ray Absorptiometry (DEXA) of the AP Spine and Hip. LIMITATIONS: None. FINDINGS: LUMBAR SPINE: The bone mineral density (BMD) measured from L1-L4 in the AP projection correlates with a T-score of -2.0, which is osteopenia as defined by the World Health Organization. BMD change since the previous examination dated 06/24/2018 is -3.7%. HIP: The bone mineral density (BMD) measured in the left hip correlates with a T-score of -3.4, which is o steoporosis as defined by the World Health Organization. BMD change since the previous examination d ated 06/24/2018 is 9.4%. IMPRESSION: 1. LUMBAR SPINE: OSTEOPENIA. 2. HIP: OSTEOPOROSIS. COMMENT: The World Health Organization defines low BMD as follows: T-score: Normal: Greater than -1.0 Osteopenia: Between -1.0 and -2.5 Osteoporosis: Less than -2.5 without fractures Established osteoporosis: Less than -2.5 with fractures In general, you may wish to consider: Diagnosis Treatment Follow-up DEXA Normal BMD Prevention 2-3 years Osteopenia Prevention/Therapy 1-2 years Osteoporosis Therapy Yearly TECHNICAL DOCUMENTATION: JOB ID: [id number] [employer]- All Rights Reserved Reading location - IP/workstation name: [email or web address]
== END ==
LOC: WI 08:03
PROVIDERS: ATTEND Family Medicine
DX: M81.0 Age-related osteoporosis without current pathological fracture (principal)
CPT/HCPCS: 77080

== ENCOUNTER 2018-08-29 12:13 | Emergency (ER) | payer MEDICARE ==
--- NOTE | 2018-08-29 12:42 | ER Document Report ---
ED ENT - General Chief Complaint: Sore Throat Stated Complaint: SORE THROAT Time Seen by Provider: 08/29/18 12:30 Primary Care Provider: DEWAYNE BAUTISTA DO [Primary Care Provider] - 08/30/18 Mode of Arrival: Wheelchair Information source: Patient Notes: 83-year-old female presents to ED for sore throat since yesterday. She states to get worse about 2 hours ago she says she feels something hanging from the back of her throat that he keeps catching on her tongue. Patient states she has a long history of difficulty swallowing and has had multiple procedures for di fficulty swallowing. She states right now because of her sore throat she is having difficulty swallowing. Patient is alert oriented respirations regular and unlabored speaking in full sentences. TRAVEL OUTSIDE OF THE [place] IN LAST 30 DAYS: No - HPI Patient complains to provider of: Throat problem Onset: Yesterday Onset/Duration: Gradual, Worse Severity: Moderate Pain Level: 3 Location of pain: Throat Associated symptoms: Sore throat Similar symptoms previously: Yes Recently seen / treated by doctor: No - Related Data Allergies/Adverse Reactions: adhesive tape [Adhesive Tape] Allergy (Verified 08/29/18 12:16) aspirin Allergy (Verified 08/29/18 12:16) betamethasone [From Celestone] Allergy (Verified 08/29/18 12:16) clindamycin HCl [From Cleocin] Allergy (Verified 08/29/18 12:16) clindamycin palmitate HCl [From Cleocin] Allergy (Verified 08/29/18 12:16) clindamycin phosphate [From Cleocin] Allergy (Verified 08/29/18 12:16) codeine [Codeine] Allergy (Verified 08/29/18 12:16) cortisone [Cortisone] Allergy (Verified 08/29/18 12:16) erythromycin base [Erythromycin Base] Allergy (Verified 08/29/18 12:16) hydromorphone HCl [From Dilaudid] Allergy (Verified 08/29/18 12:16) morphine [Morphine] Allergy (Verified 04/14/18 09:50) Penicillins Allergy (Verified 04/14/18 09:50) Sulfa (Sulfonamide Antibiotics) Allergy (Verified 04/14/18 09:50) Past Medical History - General Information source: Patient - Social History Smoking Status: Never Smoker Cigarette use (# per day): No Chew tobacco use (# tins/day): No Smoking Education Provided: No Frequency of alcohol use: None Drug Abuse: None Lives with: Family Family History: Reviewed & Not Pertinent, DM, Other Patient has suicidal ideation: No Patient has homicidal ideation: No - Past Medical History Cardiac Medical History: Reports: Hx Hypercholesterolemia Pulmonary Medical History: Reports: Hx Pneumonia EENT Medical History: Reports: None Neurological Medical History: Reports: Hx Cerebrovascular Accident Endocrine Medical History: Reports: Hx Diabetes Mellitus Type 2 Renal/ Medical History: Reports: None Malignancy Medical History: Reports: Hx Breast Cancer, Hx Cervical Cancer GI Medical History: Reports: None Musculoskeletal Medical History: Reports Hx Arthritis, Reports Hx Musculoskeletal Deformity, Reports Hx Musculoskeletal Trauma - broken cervical spine, both ankles, left wrist Skin Medical History: Reports None Psychiatric Medical History: Reports: None Traumatic Medical History: Reports: Hx Fractures, Hx Spine Fracture Infectious Medical History: Reports: None Past Surgical History: Reports: Hx Breast Surgery - mastectomy bilateral, Hx Cardiac Surgery - heart valve replacement, bypass, Hx Coronary Artery Bypass Graft, Hx Hysterectomy, Hx Neurologic Surgery, Hx Orthopedic Surgery - left knee cartlidge removed to put in left ankle, left ankle orif, neck samantha, Hx Valve Replacement - Porcine Aortic valve - Immunizations Immunizations up to date: Yes Hx Diphtheria, Pertussis, Tetanus Vaccination: Yes Review of Systems - Review of Systems Constitutional: No symptoms reported EENT: Throat pain, Difficulty swallowing Cardiovascular: No symptoms reported Respiratory: No symptoms reported Gastrointestinal: No symptoms reported Genitourinary: No symptoms reported Female Genitourinary: No symptoms reported Musculoskeletal: No symptoms reported Skin: No symptoms reported Hematologic/Lymphatic: No symptoms reported Neurological/Psychological: No symptoms reported -: Yes All other systems reviewed and negative Physical Exam - Vital signs Vitals: Temp Pulse Resp BP Pulse Ox 98.3 F 83 16 133/51 H 96 08/29/18 12:23 08/29/18 12:23 08/29/18 12:23 08/29/18 12:23 08/29/18 12:23 Interpretation: Normal - General General appearance: Appears well, Alert - HEENT Head: Normocephalic, Atraumatic Eyes: Normal Pupils: PERRL Ears: Normal External canal: Normal Tympanic membrane: Normal Sinus: Normal Nasal: Purulent discharge, Swelling Mouth/Lips: Normal Mucous membranes: Normal Pharynx: Erythema, Post nasal drainage. No: Exudate, Peritonsillar abscess, Retropharyngeal abscess, Tonsillar hypertrophy, Uvular edema, Potential airway comprom. Neck: Anterior cervical chain - Respiratory Respiratory status: No respiratory distress Chest status: Nontender Breath sounds: Normal Chest palpation: Normal - Cardiovascular Rhythm: Regular Heart sounds: Normal auscultation Murmur: No - Abdominal Inspection: Normal Distension: No distension Bowel sounds: Normal Tenderness: Nontender Organomegaly: No organomegaly - Back Back: Normal, Nontender - Extremities General upper extremity: Normal inspection, Nontender, Normal color, Normal ROM, Normal temperature General lower extremity: Normal inspection, Nontender, Normal color, Normal ROM, Normal temperature, Normal weight bearing. No: Anne's sign - Neurological Neuro grossly intact: Yes Cognition: Normal Orientation: AAOx4 [place] Coma Scale Eye Opening: Spontaneous [place] Coma Scale Verbal: Oriented [place] Coma Scale Motor: Obeys Commands [place] Coma Scale Total: 15 Speech: Normal Motor strength normal: LUE, RUE, LLE, RLE Sensory: Normal - Psychological Associated symptoms: Normal affect, Normal mood - Skin Skin Temperature: Warm Skin Moisture: Dry Skin Color: Normal Course - Re-evaluation Re-evalutation: 08/29/18 21:10 Discussed results of strep with patient. Patient was instructed to follow-up with her primary care doctor tomorrow if she developed fevers or increase in symptoms. She was discharged home with instructions for gargling with warm salt and soda water and using her throat spray. She is allergic to most antibiotics or I would have sent her home on antibiotics due to her age and medical history. I did not want to risk regarding her on antibiotic that she could have a reaction to with her history. Patient was discharged home. - Vital Signs Vital signs: Temp Pulse Resp BP Pulse Ox 98.4 F 85 16 124/73 98 08/29/18 13:58 08/29/18 13:58 08/29/18 13:58 08/29/18 13:58 08/29/18 13:58 Discharge - Discharge Clinical Impression: Sore throat Condition: Stable Disposition: HOME, SELF-CARE Additional Instructions: SORE THROAT: Sore throats may be caused by viruses, bacteria, or fungi. Most are due to a virus, and must get better on their own. Bacterial sore throats, particularly those due to "strep," need treatment with antibiotics. If an antibiotic is prescribed, be sure to take the medication for a full 10 days. Failure to take the antibiotic can result in complications such as rheumatic fever. Sometimes, an injection of antibiotics is given instead of pills or liquid. This single "shot" is equal in effectiveness to the oral medication. To relieve symptoms, take acetaminophen for pain. Sip clear liquids frequently, or eat popsicles or ice chips. Anesthetic sprays or lozenges may help. Make sure the air in the room is not too dry. Avoid using decongestants or antihistamines. Call the doctor if there is no improvement in two days, or if you have difficulty breathing, increasing throat pain, high fever, rash, or frequent vomiting. Please gargle with warm salt and soda solution several times a day. Also use your sore throat gargle and your sore throat lozenges. It is very important that you follow-up with your primary care doctor tomorrow if your symptoms continue. Your strep test was negative today. If you do develop any fevers come to the ED for follow-up care. FOLLOW-UP CARE: If you have been referred to a physician for follow-up care, call the physicians office for an appointment as you were instructed or within the next two days. If you experience worsening or a significant change in your symptoms, notify the physician immediately or return to the Emergency Department at any time for re-evaluation. Referrals: DEWAYNE BAUTISTA DO [Primary Care Provider] - 08/30/18
[2018-08-29 14:00] VITALS: BP 124/73
== END 2018-08-29 14:00 | disposition home or self-care (01) ==
LOC: ER 12:13
DX: J02.9 Acute pharyngitis, unspecified (principal); E78.00 Pure hypercholesterolemia, unspecified; E11.9 Type 2 diabetes mellitus without complications; Z85.3 Personal history of malignant neoplasm of breast; Z90.13 Acquired absence of bilateral breasts and nipples; Z95.4 Presence of other heart-valve replacement; Z95.1 Presence of aortocoronary bypass graft; Z90.710 Acquired absence of both cervix and uterus; Z88.6 Allergy status to analgesic agent; Z88.3 Allergy status to other anti-infective agents; Z88.0 Allergy status to penicillin; Z88.2 Allergy status to sulfonamides
CPT/HCPCS: 87070; 87880; 99283